=== PATIENT | female | born 1985 | race Caucasian/White ===

== ENCOUNTER 2018-02-09 15:48 | Emergency (ER) | payer BC ==
[~2018-02-09] VITALS: Ht 162.6 cm; Wt 69.4 kg
[2018-02-09 15:54] VITALS: BP 98/61; Ht 162.6 cm; Wt 69.4 kg
== END 2018-02-09 18:34 | disposition home or self-care (01) ==
LOC: ED 15:48
DX: J18.8 Other pneumonia, unspecified organism (principal)
CPT/HCPCS: Q0092